=== PATIENT | female | born 1950 | race Caucasian/White ===

== ENCOUNTER 2020-02-24 08:36 | Day surgery (SDC) | payer MEDICARE, MEDICAID ==
[~2020-02-24] VITALS: Ht 162.6 cm; Wt 115.9 kg
[2020-02-24 08:45] VITALS: BP 144/78
[2020-02-24] MEDS ORDERED: HCTZ25T PO (08:54)
[2020-02-24] MEDS ORDERED: LISI10TA4 PO (08:54)
[2020-02-24] MEDS ORDERED: PANT-47 PO (08:55)
[2020-02-24] MEDS ORDERED: [UNRECOGNIZED DRUG - OTHER] (08:56)
[2020-02-24] MEDS ORDERED: ASPI-611 PO (08:56)
[2020-02-24] MEDS ORDERED: MULT-1085 PO (08:57)
[2020-02-24] MEDS ORDERED: CALC500T11 PO (08:59)
[2020-02-24] MEDS ORDERED: LORA-641 PO (09:00)
[2020-02-24] MEDS ORDERED: VITAMIN C GUMMY PO (09:01)
[2020-02-24] MEDS ORDERED: CHOL200026 PO (09:03)
[2020-02-24] MEDS ORDERED: ACET-1008 PO (09:03)
[2020-02-24] MEDS ORDERED: CYCL5TAB PO (09:04)
[2020-02-24] MEDS ORDERED: COLLAGEN PO (09:06)
[2020-02-24] MEDS ORDERED: BIOTIN PO (09:06)
[2020-02-24] MEDS ORDERED: fentaNYL/PF 50MCG/1 ML 2ML syringe ONE (09:21)
[2020-02-24] MEDS ORDERED: LIDOcaine Viscous 15ml cup ONE (09:22)
[2020-02-24] MEDS ORDERED: MIDAZolam 5mg/5ml vial ONE (09:22)
[2020-02-24 10:20] VITALS: BP 129/71
[2020-02-24 10:30] VITALS: BP 119/73
[2020-02-24 10:40] VITALS: BP 114/68
== END 2020-02-24 11:07 | disposition home or self-care (01) ==
LOC: GI LAB 08:36
PROVIDERS: ATTEND Internal Medicine Gastroenterology
DX: K21.0 Gastro-esophageal reflux disease with esophagitis (principal); K22.8 Other specified diseases of esophagus; K91.89 Other postprocedural complications and disorders of digestive system; K29.50 Unspecified chronic gastritis without bleeding; Y83.8 Other surgical procedures as the cause of abnormal reaction of the patient, or of later complication, without mention of misadventure at the time of the procedure; Y82.8 Other medical devices associated with adverse incidents
CPT/HCPCS: 43239; G0500; J2250; J3010; J7040; 99152; 99153; A4620

== ENCOUNTER 2022-04-10 08:43 | Outpatient (CLI) | payer MEDICARE, MEDICAID ==
[~2022-04-10 08:43] MED LIST: ACET-1008 PO; ASPI-611 PO; BIOTIN PO; CALC500T11 PO; CHOL200026 PO; COLLAGEN PO; CYCL5TAB PO; HYDR25TA5 PO; LISI10TA27 PO; LORA-641 PO; MULT-1085 PO; PANT-47 PO; VITAMIN C GUMMY PO; [UNRECOGNIZED DRUG - OTHER]
[2022-04-10 09:59] LABS: ALANINE AMINOTRANSFERASE 26 U/L (12-78); ALBUMIN 3.2 G/DL (3.4-5.0); ALBUMIN/GLOBULIN RATIO 0.7 (1.1-1.5); ALKALINE PHOSPHATASE 135 IU/L (46-116); ANION GAP 6 (8-16); ASPARTATE AMINO TRANSFERASE 25 U/L (10-37); BILIRUBIN,TOTAL 0.3 MG/DL (0.1-1.0); BLOOD UREA NITROGEN 9 MG/DL (7-18); BUN/CREATININE RATIO 12.3 (6.6-38.0); CALCIUM 9.6 MG/DL (8.5-10.1); CHLORIDE 103 MMOL/L (99-107); CREATININE 0.73 MG/DL (0.40-0.90); GLUCOSE 124 MG/DL (70-104); POTASSIUM 3.4 MMOL/L (3.5-5.1); SODIUM 140 MMOL/L (135-145); TOTAL CARBON DIOXIDE 31.1 MMOL/L (24-32); TOTAL PROTEIN 7.5 G/DL (6.4-8.2); eGFR 79 ML/MIN
== END 2022-04-10 23:59 | disposition home or self-care (01) ==
LOC: LAB 08:43
PROVIDERS: ATTEND Internal Medicine Endocrinology, Diabetes & Metabolism
DX: E05.90 Thyrotoxicosis, unspecified without thyrotoxic crisis or storm (principal)
CPT/HCPCS: 36415; 80053; 84439; 84443

== ENCOUNTER 2024-07-25 12:07 | Day surgery (SDC) | payer MEDICARE, MEDICAID ==
[~2024-07-25] VITALS: Ht 160 cm; Wt 105.4 kg
[~2024-07-25 12:07] MED LIST changes: -ASPI-611 PO; -BIOTIN PO; -CALC500T11 PO; +CETI10TA19 PO; -COLLAGEN PO; +CYAN50007 PO; +CYCL-920 PO; -CYCL5TAB PO; +HYDR-3927 PO; +LISI-644 PO; -LISI10TA27 PO; -LORA-641 PO; +LOVA10TA PO; -MULT-1085 PO; -[UNRECOGNIZED DRUG - OTHER]
[2024-07-25 12:59] VITALS: BP 145/69; PULSE 61; RESP 16
[2024-07-25] MEDS ORDERED: fentaNYL/PF 50MCG/1 ML 2ML syringe ONE (13:17)
[2024-07-25] MEDS ORDERED: propofol inj 20 ML IV ONE (13:30)
[2024-07-25 13:33] VITALS: BP 117/65; PULSE 64; RESP 14; O2SAT 95
[2024-07-25 13:40] VITALS: BP 126/61; PULSE 67; RESP 14; O2SAT 99
[2024-07-25 13:50] VITALS: BP 133/61; PULSE 62; RESP 15; O2SAT 98
[2024-07-25 14:00] VITALS: BP 140/68; PULSE 66; RESP 16; O2SAT 99
[2024-07-25 14:07] VITALS: BP 151/69; PULSE 66; RESP 14; O2SAT 97
== END 2024-07-25 14:17 | disposition home or self-care (01) ==
LOC: GI LAB 12:07
PROVIDERS: ATTEND Internal Medicine Gastroenterology
DX: R11.15 Cyclical vomiting syndrome unrelated to migraine (principal); K29.70 Gastritis, unspecified, without bleeding; K31.7 Polyp of stomach and duodenum; E66.01 Morbid (severe) obesity due to excess calories; E78.5 Hyperlipidemia, unspecified; I10 Essential (primary) hypertension; Z79.899 Other long term (current) drug therapy; Z98.890 Other specified postprocedural states
CPT/HCPCS: 43239; A4620; J2704; J3010; J7030; Z7512; 88305